=== PATIENT | female | born 1990 | race Two or more races ===

== ENCOUNTER → 2025-08-27 | Outpatient (CLI) | payer OTHER ==
[2025-08-27 08:37] LABS: Hematocrit 42.8 % (36.0-46.0); Hemoglobin 14.5 g/dL (12.2-16.2); Mean Corpuscular Hemoglobin 30.9 pg (28.0-32.0); Mean Corpuscular Volume 91.3 fL (80.0-100.0); Nucleated Red Blood Cells % 0.3 %
[2025-08-27 08:46] LABS: Urine Protein, UAD Negative (Negative)
[2025-08-27 09:45] LABS: Alanine Aminotransferase 24 U/L (7-40); Albumin 4.7 g/dL (3.2-4.8); Alkaline Phosphatase 75 U/L (46-116); Anion Gap 8 (5-15); BUN/Creatinine Ratio 8.0 (10.0-20.0); Calcium 9.4 mg/dL (8.7-10.4); Carbon Dioxide 29 mmol/L (20-31); Chloride 104 mmol/L (98-107); Cholesterol 164 mg/dL (< 200); Glucose 89 mg/dL (74-106); Potassium 4.2 mmol/L (3.5-5.1); Sodium 141 mmol/L (136-145); Total Protein 7.4 g/dL (5.7-8.2); Triglycerides 71 mg/dL (< 150)
[2025-08-27 09:46] LABS: Bilirubin, Total 0.8 mg/dL (0.2-1.0)
[2025-08-27 10:39] LABS: Blood Urea Nitrogen 7 mg/dL (9-23); HDL Cholesterol 73 mg/dL (40-59)
[2025-08-27 11:23] LABS: Free T4 (Free Thyroxine) 1.04 ng/dL (0.89-1.76)
[2025-08-27 11:24] LABS: Free T3 2.69 pg/mL (2.3-4.2)
[2025-08-27 12:10] LABS: Hepatitis A Total Antibody Negative (Negative); Hepatitis B Surface Antigen Negative (Negative); Hepatitis C Antibody Negative (Negative)
== END | disposition home or self-care (01) ==
LOC: LAB 08:11
PROVIDERS: ATTEND Internal Medicine
DX: F32.81 Premenstrual dysphoric disorder (principal); Z11.59 Encounter for screening for other viral diseases; Z00.00 Encounter for general adult medical examination without abnormal findings
CPT/HCPCS: 36415; 80053; 80061; 81001; 82306; 84439; 84443; 84481; 85025; 86704; 86706; 86708; 86803; 87086; 87340